=== PATIENT | female | born 1955 | race Caucasian/White ===

== ENCOUNTER 2017-04-03 20:29 | Inpatient (IN) ==
[~2017-04-03 20:29] MED LIST: NARCAN ONE
[2017-04-03] MEDS ORDERED: NS 1,000 ML ONE (20:36)
[2017-04-03] MEDS ORDERED: NS 1,000 ML IV ONE ×2 (20:45→20:58)
--- NOTE | 2017-04-03 21:08 | PROVIDER DOCUMENTATION ---
This chart was entered by Josey Rodríguez Scribe, acting as scribe for Bo Joy MD. [id number] Abuse/Overdose - General Chief Complaint: Overdose Stated Complaint: OVERDOSE, USUAL DOC IS HEROIN Time Seen by Provider: 04/03/17 20:29 Source: EMS Unable to obtain history due to:: altered Allergies/Adverse Reactions: Allergies Allergy/AdvReac Type Severity Reaction Status Date / Time Penicillins Allergy Unknown Unknown Verified 04/03/17 20:39 Home Medications: Home Medication List Medication Instructions Recorded Confirmed Last Taken Type Aspirin/Acetaminophen/Caffeine 2 each PO 01/24/14 10/13/14 01/24/14 11:00 History [[employer] Ex-Str Powder Packet] Cyclobenzaprine [Flexeril] 10 mg PO TID PRN #15 tablet 10/13/14 Unknown Rx Alprazolam [Xanax] 1 mg PO BID #30 tablet 12/25/16 03/20/17 Unknown Rx Clindamycin [Cleocin] 150 mg PO Q6HR #30 capsule 03/20/17 Unknown Rx Hydrocodone/APAP 7.5 mg/325 mg 1 each PO Q6H PRN PRN #12 tablet 03/20/17 Unknown Rx [[place]-7.5] Promethazine [Phenergan] 25 mg PO Q6H PRN PRN 03/20/17 03/20/17 03/20/17 History - History of Present Illness-Drug/Alcohol Nature of Presenting Problem: Per EMS, they were dispatched to a possible spider bite and a fall in the bath tub. On EMS arrival, pt significant other had her out of the bath tub and dressed. Pupils were pinpoint and breathing 4 times a minute. Significant other states that her friend came over and they usually do heroin together. Pt was given 5 mg of narcan nasally [employer] by EMS. This episode of drinking or use began:: unsure Any injuries associated with this episode of intoxication?: No Similar Symptoms Previously?: No Recently seen or treated by another doctor?: No - Substance Abuse Substance Use: reports: opiates (heroine) Review of Systems - Adult - REVIEW OF SYSTEMS - ADULT ROS:: unobtainable per condition (altered mental status) Constitutional: reports: no symptoms reported Eyes: reports: no symptoms reported Ears, Nose, Mouth & Throat: reports: no symptoms reported Cardiovascular: reports: no symptoms reported Respiratory: reports: no symptoms reported Gastrointestinal: reports: no symptoms reported Genitourinary: reports: no symptoms reported Musculoskeletal: reports: no symptoms reported Integumentary: reports: no symptoms reported Neurological: reports: no symptoms reported Psychiatric: reports: no symptoms reported Endocrine: reports: no symptoms reported Hematologic/Lymphatic: reports: no symptoms reported Allergic/Immunologic: reports: no symptoms reported All Other Systems: Reviewed and Negative Past History - Adult - PAST MEDICAL HISTORY-ADULT Review of Records: reports: Nursing Assessment Review, Medications Reviewed Major Childhood Illnesses: reports: denies history Cardiovascular: reports: HTN Respiratory: reports: denies history Gastrointestinal: reports: ulcer Obstetrical/Gynecological: reports: denies history Genitourinary: reports: denies history Musculoskeletal: reports: chronic pain Neurological: reports: denies history Psychiatric: reports: anxiety, depression, psychiatric problems Endocrine/Immune: reports: denies history Other Conditions: reports: denies history - PRIOR SURGERIES/PROCEDURES Surgical/Procedure History: reports: cholecystectomy, hysterectomy, orthopedic ( extremity), back/neck - IMMUNIZATION STATUS Childhood Immunizations: See Nurse Assessment Flu Vaccine: See Nurse Assessment - FAMILY HISTORY Family History: reviewed, not pertinent - SOCIAL HISTORY Smoking: cigarettes Substance Use: opiates Alcohol Use Frequency: sober (former use) Physical Exam-General - PHYSICAL EXAM-ADULT Exam Limited by: altered mental status Initial Vital Signs Reviewed: Yes - CONSTITUTIONAL General Appearance: lethargic - EYES Eyes: other (pinpoint pupils) - RESPIRATORY Respiratory: no respiratory distress - CARDIOVASCULAR Cardiovascular: tachycardia - SKIN Integumentary: other (large boil to mid right forearm with erythema) Progress - PLAN OF CARE/RESULTS Progress/Plan/Lab Results: Vital Signs - 8 hr 04/03/17 20:31 04/03/17 20:56 Temperature 97.5 F L Pulse Rate 134 H 126 H Respiratory Rate 16 14 Blood Pressure 129/67 117/80 O2 Sat by Pulse Oximetry 99 100 Orders Category Date Time Status Admit - [facility] Routine AdmDCTranf 04/03/17 20:58 Ordered Activity - Strict Bedrest ORDERED Care 04/03/17 20:58 Active IV Insertion ORDERED Care 04/03/17 20:45 Completed Neurological Check Q1h Care 04/03/17 20:58 Active Oxygen Therapy- ED Nursing DIRECTED Care 04/03/17 20:45 Active Vital Signs Order Q 4-HR ASSESS Care 04/03/17 20:58 Active Clear Liquid Diet Diet 04/03/17 21:03 Active NPO Diet 04/03/17 21:01 Completed ACETAMINOPHEN [TDM] Stat Lab 04/03/17 20:25 Received CBC WITH DIFF [HEME] Stat Lab 04/03/17 20:25 Results CK PROFILE [SP CHEM] Stat Lab 04/03/17 20:25 Received COMPREHENSIVE METABOLIC PANEL [CHEM] Stat Lab 04/03/17 20:25 Received ETOH [ALCOHOL BLOOD] Stat Lab 04/03/17 20:25 Received MAGNESIUM [CHEM] Stat Lab 04/03/17 20:25 Received SALICYLATES [TDM] Stat Lab 04/03/17 20:25 Received TROPONIN T Stat Lab 04/03/17 20:[address] W/POSS RFLX CULT [URINALYSIS] Stat Lab 04/03/17 20:45 Received URINE DRUG SCREEN PL Stat Lab 04/03/17 20:45 Received 0.9% Sodium Chloride Inj [Ns] 1,000 ml Med 04/03/17 20:36 Discontinued .ROUTE As Directed 0.9% Sodium Chloride Inj [Ns] 1,000 ml Med 04/03/17 20:58 Active IV 125 mls/hr 0.9% Sodium Chloride Inj [Ns] 1,000 ml Med 04/03/17 20:45 Discontinued IV KVO Oxygen Device Routine Oth 04/03/17 21:00 Active Telemetry [OM.EQ] Routine Oth 04/03/17 20:58 Active EKG [EKG] Stat Ther 04/03/17 20:45 Ordered Transfer/Admit Order [TRANSFER] Routine Transfer 04/03/17 21:04 Ordered Result Diagrams: 04/03/17 20:25 Departure - Departure Time of Disposition Decision: 21:05 DIAGNOSIS: Overdose Qualifiers: Encounter type: initial encounter Injury intent: accidental or unintentional Qualified Code(s): T50.901A - Poisoning by unspecified drugs, medicaments and biological substances, accidental (unintentional), initial encounter Disposition: ADMITTED INPATIENT 09 Certified Medical Emergency: Emergent Condition: Critical Referrals and Follow-Ups: None,PCP [Primary Care Provider] - - Critical Care Note This patient required my direct & personal management of CC.: Yes Total Time (mins): 35 Critical Care Statement: This patient required my direct personal management to treat or rule out processes, the absence of which, could potentiallly result in sudden, clinically significant life or limb threatening deterioration. This chart was documented by the indicated scribe, (Josey Rodríguez Scribe) and accurately reflects the services I performed and decisions made by me, Bo Joy MD, as attested by the provider's signature.
[2017-04-03 21:14] LABS: UR AMPHETAMINES QUAL PRESUMPTIVE POSITIVE (NONE DETECT); UR BARBITUATES QUAL NONE DETECTED (NONE DETECT); UR BENZODIAZEPIN QUAL PRESUMPTIVE POSITIVE (NONE DETECT); UR COCAINE QUAL NONE DETECTED (NONE DETECT); UR MDMA QUAL NONE DETECTED (NONE DETECT); UR METHADONE QUAL NONE DETECTED (NONE DETECT); UR METHAMPHETAMINE QUAL PRESUMPTIVE POSITIVE (NONE DETECT)
[2017-04-03 21:15] LABS: UR CANNABINOIDS QUAL NONE DETECTED (NONE DETECT); UR OPIATES QUAL NONE DETECTED (NONE DETECT); UR OXYCODONE QUAL NONE DETECTED (NONE DETECT); UR PCP QUAL NONE DETECTED (NONE DETECT); UR TCA QUAL PRESUMPTIVE POSITIVE (NONE DETECT)
[2017-04-03 21:17] LABS: BASO% 0.3 % (0.0-0.8); EOS% 1.1 % (0.0-10.0); HEMATOCRIT 40.6 % (37.0-47.0); IMM GRAN% 0.4 % (0.0-0.5); LYMPH% 22.8 % (20.5-51.1); MCH 27.5 PG (27-31); MONO% 11.5 % (1.7-9.3); MPV 11.2 FL (7.4-10.4); NEUT% 63.9 % (42.2-75.2); PLT 316 X1000 (130-400); RBC 4.72 XMIL (4.2-5.4)
[2017-04-03 21:18] LABS: EOS# 0.23 X1000 (0.0-0.7); IMM GRAN# 0.08 X1000 (0.0-0.04); LYMPH# 4.66 X1000 (1.2-3.4); LYMPHS 23 % (21-51); MANUAL DIFF NEEDED? YES; MONO 5 % (1-9); MONO# 2.34 X1000 (0.11-0.59)
[2017-04-03 21:27] LABS: BILIRUBIN URINE NEGATIVE (NEGATIVE); BLOOD URINE NEGATIVE (NEGATIVE); CLARITY CLEAR (CLEAR); COLOR YELLOW; GLUCOSE URINE NEGATIVE (NEGATIVE); LEUKOCYTES URINE TRACE (NEGATIVE); NITRITE URINE NEGATIVE (NEGATIVE); PROTEIN URINE NEGATIVE (NEGATIVE); URINE CAST NONE SEEN /LPF; URINE CRYSTAL NONE SEEN /HPF; URINE CULTURE PL NEEDED? YES; URINE EPITHELIAL CELLS <10 /HPF (<10); URINE SOURCE CATH; URINE WBC <10 /HPF (<10); UROBILINOGEN URINE NORMAL
[2017-04-03 21:38] LABS: ACETAMINOPHEN < 1.2 ug/mL (10-30); AGAP 17; ALBUMIN 4.2 g/dL (3.5-5.0); ALKALINE PHOSPHATASE 122 U/L (32-104); BUN 7 mg/dL (8-22); CALCIUM 8.8 mg/dL (8.8-10.2); CHLORIDE 102 mmol/L (98-107); CK PROFILE 62 U/L (24-173); COSMO 277; GOT 26 U/L (10-30); GPT 23 U/L (10-36); MAGNESIUM 1.6 mg/dL (1.5-2.7); POTASSIUM 4.4 mmol/L (3.5-5.1); SODIUM 139 mmol/L (136-145); TCO2 20 mmol/L (25-35); TOTAL PROTEIN 8.5 g/dL (6.3-8.3)
[2017-04-03 22:01] LABS: BE -2.6 mmoll (-3.0-3.0); BLOOD TYPE ARTERIAL; DRAW SITE L BRACHIAL; METHB 1.1 % (0.0-1.5); O2(CT) 18.7 mL/dL (15.0-23.0); PO2(98.6) 197 mmHg (60-100); SAMPLE BLOOD; SAO2 98.6 % (95.0-100.0); THB 13.6 g/dL (11.5-17.4); pH(98.6) 7.28 (7.35-7.45)
[2017-04-03 22:03] LABS: ALLEN TEST NO; MODALITY VENTIMASK; PCO2(98.6) 53 mmHg (35-45)
--- NOTE | 2017-04-03 22:04 | EKG Report ---
Test Performed on : 04/03/2017 9:34:35 PM Test Reason : OVERDOSE Blood Pressure : / mmHG Vent. Rate : 118 BPM Atrial Rate : 118 BPM P-R Int : 150 ms QRS Dur : 088 ms QT Int : 320 ms P-R-T Axes : 061 061 072 degrees QTc Int : 448 ms Sinus tachycardia. Otherwise normal ECG When compared with ECG of 20-AUG-2012 10:29, No significant change was found Unconfirmed Result
[2017-04-04] MEDS: CLINDAMYCIN 600 MG/NS 600 MG/50 ML IVPB IV SCH ×3 (00:18→10:44)
[2017-04-04] MEDS: NICODERM PATCH TD PRN (05:48)
[2017-04-04] MEDS ORDERED: DILAUDID ONE (10:41)
[2017-04-04] MEDS: DILAUDID IV PRN ×3 (10:44→21:05)
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
[2017-04-04] MEDS: NORCO-10 PO PRN (14:02)
[2017-04-04] MEDS: MERREM 1 GM in NS 50 ML IV SCH ×2 (14:02→21:05)
[2017-04-04] MEDS: NEXIUM PO SCH (14:02)
[2017-04-04] MEDS: CUBICIN (FOR INPATIENT USE) 500 MG in NS 100 ML IV SCH (15:59)
[2017-04-04] MEDS: XANAX PO SCH ×2 (16:00→21:04)
[2017-04-04] MEDS: NEURONTIN PO SCH (16:56)
[2017-04-05] MEDS: DILAUDID IV PRN ×5 (01:44→21:31)
[2017-04-05] MEDS: MERREM 1 GM in NS 50 ML IV SCH ×3 (06:00→21:23)
[2017-04-05] MEDS: NEXIUM PO SCH (06:00)
[2017-04-05 09:09] LABS: MANUAL DIFF NEEDED? NO
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
[2017-04-05 09:28] LABS: AGAP 10; BUN 8 mg/dL (8-22); CALCIUM 8.1 mg/dL (8.8-10.2); CHLORIDE 98 mmol/L (98-107); COSMO 270; POTASSIUM 3.7 mmol/L (3.5-5.1); SODIUM 135 mmol/L (136-145); TCO2 27 mmol/L (25-35)
[2017-04-05] MEDS: NEURONTIN PO SCH ×3 (09:52→18:09)
[2017-04-05] MEDS: XANAX PO SCH ×2 (09:52→21:23)
[2017-04-05] MEDS: CYMBALTA PO SCH (09:52)
[2017-04-05 10:03] LABS: BASO% 0.2 % (0.0-0.8); EOS# 0.21 X1000 (0.0-0.7); EOS% 2.6 % (0.0-10.0); HEMATOCRIT 33.5 % (37.0-47.0); HEMOGLOBIN 10.6 g/dL (12.0-16.0); IMM GRAN# 0.02 X1000 (0.0-0.04); IMM GRAN% 0.2 % (0.0-0.5); LYMPH# 2.71 X1000 (1.2-3.4); MCH 27.2 PG (27-31); MCHC 31.6 g/dL (33-37); MCV 86.1 FL (81-99); MONO# 0.85 X1000 (0.11-0.59); MONO% 10.4 % (1.7-9.3); NEUT% 53.6 % (42.2-75.2); PLT 234 X1000 (130-400); RBC 3.89 XMIL (4.2-5.4)
[2017-04-05] MEDS ORDERED: PATIENT'S OWN MED PO PRN (11:49)
[2017-04-05] MEDS: NICODERM PATCH TD PRN (14:38)
[2017-04-05] MEDS: CUBICIN (FOR INPATIENT USE) 500 MG in NS 100 ML IV SCH (15:41)
[2017-04-06] MEDS: NORCO-10 PO PRN (00:47)
[2017-04-06] MEDS: MERREM 1 GM in NS 50 ML IV SCH (05:23)
[2017-04-06] MEDS: DILAUDID IV PRN ×2 (05:23→11:43)
[2017-04-06] MEDS: NEXIUM PO SCH ×2 (05:52→06:12)
[2017-04-06 06:31] LABS: MANUAL DIFF NEEDED? NO
[2017-04-06 06:43] LABS: BASO% 0.4 % (0.0-0.8); EOS# 0.19 X1000 (0.0-0.7); EOS% 2.8 % (0.0-10.0); HEMATOCRIT 36.6 % (37.0-47.0); HEMOGLOBIN 11.5 g/dL (12.0-16.0); IMM GRAN# 0.02 X1000 (0.0-0.04); IMM GRAN% 0.3 % (0.0-0.5); LYMPH# 2.92 X1000 (1.2-3.4); LYMPH% 43.1 % (20.5-51.1); MCH 26.9 PG (27-31); MCHC 31.4 g/dL (33-37); MCV 85.5 FL (81-99); MONO# 0.68 X1000 (0.11-0.59); MPV 11.5 FL (7.4-10.4); NEUT% 43.4 % (42.2-75.2); PLT 274 X1000 (130-400); RBC 4.28 XMIL (4.2-5.4)
[2017-04-06 07:08] LABS: AGAP 8; BUN 8 mg/dL (8-22); CALCIUM 8.6 mg/dL (8.8-10.2); CHLORIDE 101 mmol/L (98-107); COSMO 275; POTASSIUM 3.7 mmol/L (3.5-5.1); SODIUM 139 mmol/L (136-145); TCO2 31 mmol/L (25-35)
[2017-04-06] MEDS: XANAX PO SCH (08:41)
[2017-04-06] MEDS: CYMBALTA PO SCH (08:41)
[2017-04-06] MEDS: NEURONTIN PO SCH (08:41)
[2017-04-06 12:16] VITALS: BP 121/65
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
[2017-04-06] MEDS ORDERED: KEFLEX PO SCH (21:00)
[2017-04-06] MEDS ORDERED: DOXYCYCLINE PO SCH (21:00)
== END 2017-04-06 12:44 | disposition home or self-care (01) ==
LOC: P.ED 20:29 → P.ICU 21:19 → SUATTDRO 21:19 → P.MEDSURG 04-05 12:10
PROVIDERS: ATTEND Internal Medicine